=== PATIENT | female | born 1990 | race African-American/Black ===

== ENCOUNTER 2018-10-22 00:17 | Emergency (ER) | END 2018-10-22 01:45 | disposition left against medical advice (07) | LOC: ER 00:17 | DX: Z53.21 Procedure and treatment not carried out due to patient leaving prior to being seen by health care provider (principal); R10.2 Pelvic and perineal pain; N89.8 Other specified noninflammatory disorders of vagina ==

== ENCOUNTER 2018-10-29 15:18 | Emergency (ER) | payer OTHER ==
[2018-10-29] MEDS ORDERED: MAG HYDROX/AL HYDROX/SIMETH SUSP 30 ML UDCUP PO ONE (15:39)
[2018-10-29] MEDS ORDERED: ONDANSETRON 4 MG TAB.RAPDIS PO ONE (15:39)
[2018-10-29] MEDS ORDERED: LIDOCAINE 2% VISCOUS SOLN 20 ML UDCUP PO ONE (15:39)
--- NOTE | 2018-10-29 15:41 | ER Document Report ---
ED Medical Screen (RME) - General Chief Complaint: Sore Throat Stated Complaint: SORE THROAT Time Seen by Provider: 10/29/18 15:31 Mode of Arrival: Ambulatory Information source: Patient Notes: Patient presents complaining of sore throat and cough for the past week. Patient reports subjective fevers at home with chills. Patient complains of vomiting each day about 2 or 3 episodes. Patient also complains of abdominal pain for the past 4 days. I have greeted and performed a rapid initial assessment of this patient. A comprehensive ED assessment and evaluation of the patient, analysis of test results and completion of the medical decision making process will be conducted by additional ED providers. TRAVEL OUTSIDE OF THE [place] IN LAST 30 DAYS: No - Related Data Allergies/Adverse Reactions: No Known Allergies Allergy (Unverified 10/29/18 15:19) Physical Exam - Vital signs Vitals: Temp Pulse Resp BP Pulse Ox 98.3 F 83 18 124/81 97 10/29/18 15:24 10/29/18 15:24 10/29/18 15:24 10/29/18 15:24 10/29/18 15:24 - HEENT Mouth/Lips: Normal Mucous membranes: Normal Pharynx: Erythema. No: Peritonsillar abscess, Post nasal drainage, Retropharyngeal abscess, Tonsillar hypertrophy, Potential airway comprom. Course - Vital Signs Vital signs: Temp Pulse Resp BP Pulse Ox 98.3 F 83 18 124/81 97 10/29/18 15:24 10/29/18 15:24 10/29/18 15:24 10/29/18 15:24 10/29/18 15:24
[2018-10-29 16:14] LABS: ABSOLUTE EOSINOPHILS # (AUTO) 0.2 10^3/uL (0.0-0.6); ABSOLUTE LYMPHOCYTES (AUTO) 2.4 10^3/uL (0.5-4.7); ABSOLUTE MONOCYTES (AUTO) 0.7 10^3/uL (0.1-1.4); ABSOLUTE NEUT (AUTO) 3.3 10^3/uL (1.7-8.2); BASOPHILS % (AUTO) 0.5 % (0-2); EOSINOPHILS % (AUTO) 2.7 % (0-6); HEMATOCRIT 37.4 % (36.0-47.0); MEAN CORPUSCULAR HEMOGLOBIN 30.6 pg (27.0-33.4); MEAN CORPUSCULAR HGB CONC 34.9 g/dL (32.0-36.0); MEAN CORPUSCULAR VOLUME 88 fl (80-97); MONOCYTES % (AUTO) 10.6 % (3-13); PLATELET COUNT 197 10^3/uL (150-450); RED BLOOD COUNT 4.27 10^6/uL (3.72-5.28); RED CELL DISTRIBUTION WIDTH 13.6 % (11.5-14.0); SEGMENTED NEUTROPHILS % (AUTO) 50.2 % (42-78); TOTAL CELLS COUNTED % (AUTO) 100 %; WHITE BLOOD COUNT 6.6 10^3/uL (4.0-10.5)
[2018-10-29 16:33] LABS: ALANINE AMINOTRANSFERASE 28 U/L (9-52); ALBUMIN 4.1 g/dL (3.5-5.0); ALKALINE PHOSPHATASE 54 U/L (38-126); ANION GAP 6 (5-19); ASPARTATE AMINO TRANSFERASE 21 U/L (14-36); BILIRUBIN,DIRECT 0.2 mg/dL (0.0-0.4); BILIRUBIN,TOTAL 0.5 mg/dL (0.2-1.3); BLOOD UREA NITROGEN 17 mg/dL (7-20); CALCIUM 10.1 mg/dL (8.4-10.2); CARBON DIOXIDE 26 mmol/L (22-30); CHLORIDE 107 mmol/L (98-107); GLUCOSE 103 mg/dL (75-110); LIPASE 246.7 U/L (23-300); POTASSIUM 4.2 mmol/L (3.6-5.0); SODIUM 139.4 mmol/L (137-145); TOTAL PROTEIN 7.3 g/dL (6.3-8.2)
--- NOTE | 2018-10-29 16:37 | RADIOLOGY REPORT (SQ) ---
EXAM DESCRIPTION: CHEST 2 VIEWS COMPLETED DATE/TIME: 10/29/2018 4:15 pm REASON FOR STUDY: cough COMPARISON: None. TECHNIQUE: Frontal and lateral radiographic views of the chest acquired. NUMBER OF VIEWS: Two view. LIMITATIONS: None. FINDINGS: LUNGS AND PLEURA: No opacities, masses or pneumothorax. No pleural effusion. MEDIASTINUM AND HILAR STRUCTURES: No masses or contour abnormalities. HEART AND VASCULAR STRUCTURES: Heart normal size. No evidence for failure. BONES: No acute findings. HARDWARE: None in the chest. OTHER: No other significant finding. IMPRESSION: NO SIGNIFICANT RADIOGRAPHIC FINDING IN THE CHEST. TECHNICAL DOCUMENTATION: JOB ID: [id number] [employer]- All Rights Reserved Reading location - IP/workstation name: [email or web address]
[2018-10-29] MEDS ORDERED: KETOROLAC TROMETHAMINE INJ/PF 30 MG/1 ML SDV IV ONE (16:58)
[2018-10-29] MEDS ORDERED: DEXAMETHASONE SOD PHOS INJ 10 MG/1 ML VIAL IV ONE (16:58)
--- NOTE | 2018-10-29 19:06 | RADIOLOGY REPORT (SQ) ---
EXAM DESCRIPTION: CT SOFT TISSUE NECK WITH COMPLETED DATE/TIME: 10/29/2018 6:56 pm REASON FOR STUDY: dysphagia, L>R tonsillar hypertrophy COMPARISON: None. TECHNIQUE: Post IV contrasted scanning from skull base through lung apices with review of bone, soft tissue and lung windows. Reconstructed coronal and sagittal MPR images reviewed. All images stored on PACS. All CT scanners at this facility use dose modulation, iterative reconstruction, and/or weight based d osing when appropriate to reduce radiation dose to as low as reasonably achievable (ALARA). [facility]: Dose Right [facility]: CareDose [facility]: Dose Right [facility]: Teradose 4D [facility]: Spodly CONTRAST TYPE AND DOSE: contrast/concentration: Isovue 350.00 mg/ml; Total Contrast Delivered: 75.0 ml; Total Saline Delivered: 55.0 ml RENAL FUNCTION: BUN 17 creatinine 0.78 RADIATION DOSE: CT Rad equipment meets quality standard of care and radiation dose reduction techniq ues were employed. CTDIvol: 16.5 mGy. DLP: 462 mGy-cm. . LIMITATIONS: None. FINDINGS: SKULL BASE: Intact. MAJOR SALIVARY GLANDS: No solid or cystic masses. No inflammatory changes. LYMPHADENOPATHY: No adenopathy. MUCOSAL MASSES OR ASYMMETRY: Story tonsils are prominent. There is no peritonsillar abscess. LARYNX/CORDS: No abnormal findings. VASCULAR STRUCTURES: The major vessels are patent. LUNG APICES: Clear. BONES: Intact. THYROID: Normal size. No masses. PARANASAL SINUSES: There is opacification in the right maxillary sinus. There is an antral window on the right. There is a mucous retention cyst in the left maxillary sinus. OTHER: No other significant finding. IMPRESSION: Prominent tonsils with no evidence of peritonsillar abscess. Maxillary sinus disease. TECHNICAL DOCUMENTATION: JOB ID: [id number] Quality ID # [id number]: Final reports with documentation of one or more dose reduction techniques (e.g., Au tomated exposure control, adjustment of the mA and/or kV according to patient size, use of iterative reconstruction technique) 2010 [employer] All Rights Reserved Reading location - IP/workstation name: [email or web address]
--- NOTE | 2018-10-29 19:16 | ER Document Report ---
Entered by BASIA ORTIZ SCRIBE 10/29/18 [id number] Acting as scribe for:RO LOPEZ DO ED ENT - General Chief Complaint: Abdominal Pain Stated Complaint: SORE THROAT Time Seen by Provider: 10/29/18 15:31 Primary Care Provider: GAYLE MCGRATH [Primary Care Provider] - Follow up as needed Mode of Arrival: Ambulatory Information source: Patient Notes: 28-year-old female who presents to the emergency department today with complaints of throat pain for the last week. Patient states her pain has increased over the last few days. Patient has taken [id number] cold and flu as well as used hot tea with lemon and honey with minimal relief. Patient has also had vomiting and cough over the last few days. Currently states she feels like she cannot swallow all of her food and feels like it is getting stuck. TRAVEL OUTSIDE OF THE [place] IN LAST 30 DAYS: No - Related Data Allergies/Adverse Reactions: No Known Allergies Allergy (Unverified 10/29/18 15:19) Past Medical History - General Information source: Patient - Social History Smoking Status: Never Smoker Cigarette use (# per day): No Frequency of alcohol use: None Drug Abuse: None Lives with: Family Family History: Reviewed & Not Pertinent Review of Systems - Review of Systems Constitutional: No symptoms reported EENT: See HPI, Throat pain Cardiovascular: No symptoms reported Respiratory: See HPI, Cough Gastrointestinal: See HPI, Vomiting Genitourinary: No symptoms reported Female Genitourinary: No symptoms reported Musculoskeletal: No symptoms reported Skin: No symptoms reported Hematologic/Lymphatic: No symptoms reported Neurological/Psychological: No symptoms reported -: Yes All other systems reviewed and negative Physical Exam - Vital signs Vitals: Temp Pulse Resp BP Pulse Ox 98.3 F 83 18 124/81 97 10/29/18 15:24 10/29/18 15:24 10/29/18 15:24 10/29/18 15:24 10/29/18 15:24 - Notes Notes: PHYSICAL EXAM GENERAL: Alert, interacts well. No acute distress. HEAD: Normocephalic, atraumatic. EYES: Pupils equal, round, and reactive to light. Extraocular movements intact. ENT: Oral mucosa moist, tongue midline. Nonsymmetric bilateral tonsillar hypertrophy, left greater than right. Tonsils are injected bilaterally. Cobblestoning of the posterior oropharynx. Voice is hoarse NECK: Full range of motion. Supple. Trachea midline. LUNGS: Clear to auscultation bilaterally, no wheezes, rales, or rhonchi. No respiratory distress. HEART: Regular rate and rhythm. No murmurs, gallops, or rubs. ABDOMEN: Soft, non-tender. Non-distended. Bowel sounds present in all 4 quadrants. No guarding, rigidity, or rebound. EXTREMITIES: Moves all 4 extremities spontaneously. No edema, radial and dorsalis pedis pulses 2/4 bilaterally. No cyanosis. NEUROLOGICAL: Alert and oriented x3. Normal speech. PSYCH: Normal affect, normal mood. SKIN: Warm, dry, normal turgor. No rashes or lesions noted. Course - Re-evaluation Re-evalutation: 10/29/18 19:13 CT scan of the neck with contrast shows prominent tissues with no evidence of peritonsillar abscess. There is maxillary sinus disease. CBC is unremarkable, CMP unremarkable, test negative, Monospot and strep swabs are negative. Chest x-ray shows no acute process. Discussed with patient that this is likely a viral upper respiratory infection that she will be treated sympto matically. Antibiotics are not indicated. Patient will receive Zofran for nausea and vomiting, Tessalon Perles for cough, nasal saline sprays for rhinorrhea, nasal steroids to decrease the drainage, already received a dose of steroids here which will decrease the cobblestoning in her throat which is likely causing the soreness. Discharged home. - Vital Signs Vital signs: Temp Pulse Resp BP Pulse Ox 98.3 F 83 18 124/81 97 10/29/18 15:24 10/29/18 15:24 10/29/18 15:24 10/29/18 15:24 10/29/18 15:24 - Laboratory Result Diagrams: 10/29/18 16:05 10/29/18 16:05 Discharge - Discharge Clinical Impression: Acute viral pharyngitis, Viral upper respiratory tract infection with cough Condition: Stable Disposition: HOME, SELF-CARE Additional Instructions: Today we did not find any sign of bacterial infection. There is no need to take antibiotics. They will not help. I have prescribed Zofran which is a pill that dissolves under your tongue that will help prevent nausea and vomiting. I have prescribed Tessalon Perles which are a cough suppressant pill you may take 1 pill every 8 hours as needed for cough. In between you should use a humidifier and you may use throat lozenges to decrease your cough and ear or throat pain. Please use nasal saline rinses such as a NetiPot or NeilMed Sinus Rinses. You have been prescribed Nasonex 1 squirt per nostril twice a day will help to decrease nasal discharge and your throat pain. Drink plenty of fluids. Please use ibuprofen (Motrin or Advil) 600-800 mg every 8 hours as needed for pain or fever. You may also use acetaminophen (Tylenol) 1000 mg every 4-6 hours as needed for pain or fever. Please be aware that many medications contain acetaminophen, do not exceed a total of 1000 mg of acetaminophen every 6 hours. Prescriptions: Ondansetron [Zofran Odt 4 mg Tablet] 1 - 2 tab PO Q4HP PRN #10 tab.rapdis PRN Reason: Benzonatate [Tessalon Perles 100 mg Capsule] 100 mg PO Q8HP PRN #30 capsule PRN Reason: Mometasone Furoate [Nasonex] 1 spray NS Q12 #1 spray.pump Referrals: [facility] [Primary Care Provider] - Follow up as needed I personally performed the services described in the documentation, reviewed and edited the documentation which was dictated to the scribe in my presence, and it accurately records my words and actions.
[2018-10-29 19:28] VITALS: BP 120/80
== END 2018-10-29 19:29 | disposition home or self-care (01) ==
LOC: ER 15:18
DX: J06.9 Acute upper respiratory infection, unspecified (principal); J02.9 Acute pharyngitis, unspecified; B97.89 Other viral agents as the cause of diseases classified elsewhere; R10.9 Unspecified abdominal pain; R11.10 Vomiting, unspecified; R05 Cough
CPT/HCPCS: 99284; 96374; 96375; 36415; 87070; 87880; 83690; 84703; 85025; 86308; 80053; 71046; 70491; S0119; J3490; J1885; J1100

== ENCOUNTER 2018-11-08 22:08 | Emergency (ER) | payer OTHER ==
[2018-11-09] MEDS ORDERED: ACETAMINOPHEN 325 MG TABLET PO ONE (00:26)
--- NOTE | 2018-11-09 00:27 | ER Document Report ---
ED Medical Screen (RME) - General Chief Complaint: Abdominal Pain Stated Complaint: ABDOMINAL PAIN Time Seen by Provider: 11/09/18 00:22 Primary Care Provider: GAYLE MCGRATH [Primary Care Provider] - Follow up as needed Notes: 28-year-old female with type 2 diabetes presents with chief complaint of bilateral pelvic pain. Last menstrual period over 3 years ago as she has been on Depo-Provera but received her last shot about 4 months ago. Pain is described as a cramping/striking pain that radiates from her bilateral adnexa to her suprapubic area. Patient has spotted last week. Patient is also had hot flashes for the last 2 days and a headache that has been unremitting. Patient is sexually active and not using protection with the same partner. She denies any fever, chills, nausea, vomiting, diarrhea, shortness of breath or chest pain, complains of white vaginal discharge, no urinary symptoms. I have greeted and performed a rapid initial assessment of this patient. A comprehensive ED assessment and evaluation of the patient, analysis of test results and completion of medical decision making process will be conducted by an additional ED providers. TRAVEL OUTSIDE OF THE [place] IN LAST 30 DAYS: No - Related Data Allergies/Adverse Reactions: No Known Allergies Allergy (Unverified 10/29/18 15:19) Physical Exam - Vital signs Vitals: Temp Pulse Resp BP Pulse Ox 98.5 F 78 16 133/83 H 100 11/08/18 23:51 11/08/18 23:51 11/08/18 23:51 11/08/18 23:51 11/08/18 23:51 - Respiratory Respiratory status: No respiratory distress Chest status: Nontender Breath sounds: Normal Chest palpation: Normal Course - Vital Signs Vital signs: Temp Pulse Resp BP Pulse Ox 98.5 F 78 16 133/83 H 100 11/08/18 23:51 11/08/18 23:51 11/08/18 23:51 11/08/18 23:51 11/08/18 23:51 Doctor's Discharge - Discharge Referrals: [facility] [Primary Care [facility]] - Follow up as needed
--- NOTE | 2018-11-09 02:44 | ER Document Report ---
ED General - General Chief Complaint: Abdominal Pain Stated Complaint: ABDOMINAL PAIN Time Seen by Provider: 11/09/18 00:22 Primary Care Provider: GAYLE MCGRATH [Primary Care Provider] - Follow up in 3-5 days Notes: Patient is a 28-year-old female that presents to the emergency department for chief complaint of abdominal pain. Patient states she is been having pelvic pain has been on and off for the past 2 days, with associated nausea. She describes the pain as a sharp pain, and vaginal region, and extends up towards her stomach. She currently rates the pain as a 2 out of 10, is not as severe as it has been in the past. Denies having any fevers, chills, night sweats, vomiting, diarrhea, hematuria, but does admit to having some dysuria. She is not concerned about any STD, she states she may be but she is not sure she usually has a Depo-Provera shot today at the last injection about 4 months ago. Past Medical History: Diabetes mellitus Past Surgical History: Appendectomy Social History: Denies tobacco, alcohol or drug use. Family History: Reviewed and noncontributory for presenting illness Allergies: Reviewed, see documented allergy list. REVIEW OF SYSTEMS: Other than noted above, the 12 point review of systems was reviewed with the patient and were negative, all pertinent findings are included in the HPI. PHYSICAL EXAMINATION: Vital signs reviewed, nursing noted reviewed. GENERAL: Well-appearing, well-nourished and in no acute distress. HEAD: Atraumatic, normocephalic. EYES: Eyes appear normal, extraocular movements intact, sclera anicteric, conjunctiva are normal. ENT: nares patent, oropharynx clear without exudates. Moist mucous membranes. NECK: Normal range of motion, supple without lymphadenopathy LUNGS: Breath sounds clear to auscultation bilaterally and equal. No wheezes rales or rhonchi. HEART: Regular rate and rhythm without murmurs ABDOMEN: Soft, nontender, normoactive bowel sounds. No rebound, guarding, or rigidity. No masses appreciated. Pelvic Exam: With a taxi driver supervisor present the exam was explained to the patient and patient agreed to proceed with exam. On exam, no external lesions or abnormalities noted. Internal speculum exam demonstrated normal appearing cervix without purulent discharge. Swabs obtained. Bimanual exam was negative for significant adnexal tenderness, or palpable masses. EXTREMITIES: Nontender, good range of motion, no pitting or edema. NEUROLOGICAL: No focal neurological deficits. Moves all extremities spontaneously Motor and sensory grossly intact on exam. PSYCH: Normal mood, normal affect. SKIN: Warm, Dry, normal turgor, no rashes or lesions noted on exposed skin TRAVEL OUTSIDE OF THE [place] IN LAST 30 DAYS: No - Related Data Allergies/Adverse Reactions: No Known Allergies Allergy (Unverified 10/29/18 15:19) Past Medical History - Social History Smoking Status: Never Smoker Family History: Reviewed & Not Pertinent Physical Exam - Vital signs Vitals: Temp Pulse Resp BP Pulse Ox 98.5 F 78 16 133/83 H 100 11/08/18 23:51 11/08/18 23:51 11/08/18 23:51 11/08/18 23:51 11/08/18 23:51 Course - Re-evaluation Re-evalutation: Patient seen and examined vital signs reviewed. Laboratory data and/or imaging were ordered as appropriate for the patient's presenting symptoms and complaint, with consideration of any critical or life threatening conditions that may be associated with their obtained history and exam as noted above. Patient was treated with Pyridium, and Keflex after UA was reviewed and demonstrated signs concerning for urinary tract infection, will also send this for culture Results were reviewed when available and demonstrated UA convincing for UTI, hCG negative, sized for chlamydia, gonorrhea, and wet mount were obtained, wet mount demonstrated bacteria without white cells The patient was re-evaluated and was stable Evaluation was most consistent with UTI, will discharge home with Keflex, and Pyridium advised follow-up with GIN CLERK. Results were discussed with the patient at this point, after careful consideration I feel that that patient can be discharged from the emergency department, the patient was educated treatments and reasons to return to the emergency department based on their presumed diagnosis as noted above, they were advised to followup with a primary care physician in 2-3 days. Patient was agreeable to plan of care. *Note is created using voice recognition software and may contain spelling, syntax or grammatical errors. Laboratory 11/09/18 11/09/18 11/09/18 00:25 03:12 03:12 Urine Color YELLOW Urine Appearance CLOUDY Urine pH 6.0 Ur Specific Mathews 1.018 Urine Protein NEGATIVE Urine Glucose (UA) NEGATIVE Urine Ketones NEGATIVE Urine Blood NEGATIVE Urine Nitrite NEGATIVE Urine Bilirubin NEGATIVE Urine Urobilinogen 2.0 H Ur Leukocyte Esterase LARGE H Urine WBC (Auto) 52 Urine RBC (Auto) 4 Urine Bacteria (Auto) TRACE Squamous Epi Cells Auto 7 Urine Mucus (Auto) OCC Urine Ascorbic Acid NEGATIVE Urine HCG, Qual NEGATIVE Epi Cells (Wet Prep) 3+ EPITHELIALS SEEN Bacteria (Wet Prep) 3+ BACTERIA SEEN Trichomonas (Wet Prep) NO TRICHOMONAS SEEN Vaginal WBC NO WBCS SEEN Vaginal RBC FEW RBCS SEEN Vaginal Yeast NO YEAST SEEN Chlamydia DNA (PCR) NOT DETECTED N.gonorrhoeae DNA (PCR) NOT DETECTED - Vital Signs Vital signs: Temp Pulse Resp BP Pulse Ox 98.4 F 75 18 130/78 H 99 11/09/18 03:48 11/09/18 03:48 11/09/18 03:48 11/09/18 03:48 11/09/18 03:48 - Laboratory Laboratory results interpreted by me: 11/09/18 00:25 Urine Urobilinogen 2.0 H Ur Leukocyte Esterase LARGE H Discharge - Discharge Clinical Impression: UTI (urinary tract infection) Qualifiers: Urinary tract infection type: site unspecified Hematuria presence: without hematuria Qualified Code(s): N39.0 - Urinary tract infection, site not specified Condition: Stable Disposition: HOME, SELF-CARE Instructions: Urinary Tract Infection ([facility]) Additional Instructions: Please take the complete course of antibiotics as prescribed, and follow-up with a primary care physician or [facility] CL[facility]. Please take the Pyridium, this will help with pain, associated with your infection, this medication can turn your urine orange, so do not be alarmed if this occurs. Prescriptions: RX: Cephalexin Monohydrate [Keflex 500 mg Capsule] 500 mg PO BID 3 Days #6 capsule Phenazopyridine HCl [Pyridium 200 mg Tablet] 200 mg PO TID #15 tablet Referrals: [facility] [Primary Care [facility]] - Follow up in 3-5 days
[2018-11-09 03:11] LABS: APPEARANCE,URINE CLOUDY; BILIRUBIN,URINE NEGATIVE (NEGATIVE); COLOR,URINE YELLOW; GLUCOSE, URINE NEGATIVE (NEGATIVE); KETONES,URINE NEGATIVE (NEGATIVE); LEUKOCYTE ESTERASE,URINE LARGE (NEGATIVE); NITRITE,URINE NEGATIVE (NEGATIVE); PROTEIN,URINE NEGATIVE (NEGATIVE); URINE SPECIFIC GRAVITY 1.018
[2018-11-09] MEDS ORDERED: CEPHALEXIN 500 MG CAPSULE PO ONE (03:23)
[2018-11-09] MEDS ORDERED: PHENAZOPYRIDINE HCL 200 MG TABLET PO ONE (03:23)
[2018-11-09 03:25] LABS: BACTERIA (WET MOUNT) 3+ BACTERIA SEEN; EPITHELIALS (WET MOUNT) 3+ EPITHELIALS SEEN; RBCS (WET MOUNT) FEW RBCS SEEN; T.VAGINALIS (WET MOUNT) NO TRICHOMONAS SEEN; WBCS (WET MOUNT) NO WBCS SEEN; YEAST (WET MOUNT) NO YEAST SEEN
[2018-11-09 04:06] VITALS: BP 130/78
[2018-11-09 04:50] LABS: CHLAM PCR NOT DETECTED (NOT DETECT); GON PCR NOT DETECTED (NOT DETECT)
== END 2018-11-09 03:55 | disposition home or self-care (01) ==
LOC: ER 22:08
DX: N39.0 Urinary tract infection, site not specified (principal); R10.9 Unspecified abdominal pain; R10.2 Pelvic and perineal pain; R11.0 Nausea
CPT/HCPCS: 99284; 87086; 87210; 81025; 81001; 87491; 87591; J3490

== ENCOUNTER 2020-01-07 03:19 | Emergency (ER) | payer BC, OTHER ==
[2020-01-07] MEDS ORDERED: KETOROLAC TROMETHAMINE 60 MG/2 ML SDV IM ONE (03:40)
--- NOTE | 2020-01-07 03:43 | ER Document Report ---
HPI - HPI Time Seen by Provider: 01/07/20 03:33 Pain Level: 4 Context: Patient is a 30-year-old female that comes emergency department for chief complaint of neck pain and stiffness. She states that she started having soreness of her neck yesterday, she woke up this morning much worse, she states she has developed pain throughout the day and now she has trouble moving her head to the left at all. She has very limited range of motion side to side and she states it feels like she has a "spasm" in her neck. She cannot recall a specific injury, she works at a desk. She denies numbness, head injury, neck injury, fever, nausea, vomiting, headache, chest pain, shortness of breath, any other locations of back pain, incontinence. She takes no daily prescribed indications. She denies past medical history of wisdom tooth removal and . She denies recreational drugs. - REPRODUCTIVE LMP: 1 wk ago Reproductive: DENIES: : Past Medical History - General Information source: Patient - Social History Smoking Status: Current Some Day Smoker Frequency of alcohol use: None Drug Abuse: None Lives with: Family Family History: Reviewed & Not Pertinent Patient has homicidal ideation: No - Medical History Medical History: Negative Renal/ Medical History: Denies: Hx Peritoneal Dialysis Surgical Hx: Negative - Immunizations Immunizations up to date: Yes Hx Diphtheria, Pertussis, Tetanus Vaccination: Yes Vertical Provider Document - CONSTITUTIONAL General Appearance: WD/WN. negative: No Apparent Distress - Patient appears unc omfortable, she is holding her head to try to support her neck - INFECTION CONTROL TRAVEL OUTSIDE OF THE [place] IN LAST 30 DAYS: No - HEENT HEENT: Atraumatic, Normal ENT Exam, Normocephalic - NECK Neck: Normal Inspection - No nuchal rigidity - RESPIRATORY Respiratory: Breath Sounds Normal, No Respiratory Distress - CARDIOVASCULAR Cardiovascular: Regular Rate, Regular Rhythm. negative: Tachycardia - GI/ABDOMEN Gastrointestinal: Abdomen Soft, Abdomen Non-Tender. negative: Abdomen Tender - BACK Back: negative: Normal Inspection - Patient with tender spasmed muscles along the paracervical area bilaterally, worse on the right, right-sided trapezius muscle tenderness and spasm. Very limited range of motion laterally with the neck especially to the left. No midline tenderness, no saddle anesthesia, no signs of trauma. Normal upper and lower extremity range of motion, normal strength, normal distal neurovascular exam. - MUSCULOSKELETAL/EXTREMETIES Musculoskeletal/Extremeties: MAEW, FROM, Non-Tender - NEURO Level of Consciousness: Awake, Alert, Appropriate Motor/Sensory: No Motor Deficit, No Sensory Deficit - DERM Integumentary: Warm, Dry, No Rash Course - Re-evaluation Re-evalutation: Patient has very obvious muscle spasm and almost torticollis with very limited lateral range of motion the neck. Very tender along the paracervical muscles and trapezius muscle on the right side especially. Patient is holding her head with her hands to try to help with her spasm. However she has not had any trauma, she has no nuchal rigidity, no fever, no neurological deficits, and she has no midline tenderness of the spine. Discussed options, patient will be treated for suspected muscle spasms. She was started with medications here including Toradol and diazepam, she will be provided with this at home along with work release. Discussed precautions, expectations, follow-up, and return precautions with patient in detail. Patient states understanding and agreement with plan. - Vital Signs Vital signs: Temp Pulse Resp BP Pulse Ox 99 F 01/07/20 03:19 Discharge - Discharge Clinical Impression: Neck pain, Muscle spasm Condition: Stable Disposition: HOME, SELF-CARE Additional Instructions: Your evaluation is consistent with significant muscle spasms in your paracervical and trapezius muscles especially on the right. You have been prescribed diazepam as a muscle relaxer, use with the precautions listed. Also take the anti-inflammatory as prescribed. Apply heat to your neck, perform gentle stretches and massage. Symptoms should gradually resolve. Follow-up with primary care for additional management. Return if you worsen including severe worsening pain, developing numbness, severe headache, vomiting, fever, or any other concerning or worsening symptoms. Prescriptions: Naproxen 500 mg PO BID PRN #20 tablet PRN Reason: Diazepam [Valium 5 mg Tablet] 1 - 2 tab PO TID PRN #12 tablet PRN Reason: Forms: Return to Work Referrals: [facility] [NO LOCAL MD] - Follow up in 1 week
[2020-01-07] MEDS ORDERED: HYDROCODONE/ACETAMINOPHEN 5-325 MG (6 TAB/ER DISP) PO PRN (04:14)
[2020-01-07] MEDS ORDERED: DIAZEPAM 5 MG TABLET PO ONE (04:28)
[2020-01-07 04:39] VITALS: BP 150/88
== END 2020-01-07 04:40 | disposition home or self-care (01) ==
LOC: ER 03:19
DX: M54.2 Cervicalgia (principal); M62.838 Other muscle spasm; F17.200 Nicotine dependence, unspecified, uncomplicated
CPT/HCPCS: 99283

== ENCOUNTER 2020-01-09 16:32 | Emergency (ER) | payer BC ==
[2020-01-09] MEDS ORDERED: DIAZEPAM INJ 10 MG/2 ML DISP.SYRIN IV ONE (17:14)
[2020-01-09] MEDS ORDERED: KETOROLAC TROMETHAMINE INJ/PF 30 MG/1 ML SDV IV ONE (17:14)
[2020-01-09] MEDS ORDERED: MORPHINE SULFATE 10 MG/ML INJ IV ONE (17:14)
--- NOTE | 2020-01-09 17:16 | ER Document Report ---
ED Medical Screen (RME) - General Chief Complaint: Neck Problem Stated Complaint: NECK PAIN Time Seen by Provider: 01/09/20 17:07 Mode of Arrival: Ambulatory Information source: Patient Notes: Patient is a 22-year-old female presents emergency department with chief complaint of head and neck pain. Patient was seen here 2 days ago and diagnosed with torticollis. Patient was sent home with a prescription for naproxen and Valium. Patient reports she has been taking the medications, she states the Valium helps slightly but she continues to have significant pain. She denies any fever or chills. She does not have any nuchal rigidity. She does report pain is worse when she moves her head towards the right. She is very tearful in triage and in obvious distress. I have greeted and performed a rapid initial assessment of this patient. A comprehensive ED assessment and evaluation of the patient, analysis of test results and completion of the medical decision making process will be conducted by additional ED providers. I have specifically instructed the patient or family members with the patient to immediately return to any nursing staff should anything change in the patient's condition or with their chief complaint. TRAVEL OUTSIDE OF THE [place] IN LAST 30 DAYS: No - Related Data Allergies/Adverse Reactions: No Known Allergies Allergy (Verified 01/09/20 17:04) Past Medical History - Social History Chew tobacco use (# tins/day): No Frequency of alcohol use: Social Drug Abuse: None Renal/ Medical History: Denies: Hx Peritoneal Dialysis - Immunizations Immunizations up to date: Yes Hx Diphtheria, Pertussis, Tetanus Vaccination: Yes Physical Exam - Vital signs Vitals: Temp Pulse Resp BP Pulse Ox 98.4 F 107 H 20 145/83 H 96 01/09/20 16:36 01/09/20 16:36 01/09/20 16:36 01/09/20 16:36 01/09/20 16:36 Course - Vital Signs Vital signs: Temp Pulse Resp BP Pulse Ox 98.4 F 107 H 20 145/83 H 96 01/09/20 16:36 01/09/20 16:36 01/09/20 16:36 01/09/20 16:36 01/09/20 16:36
[2020-01-09] MEDS ORDERED: KETOROLAC TROMETHAMINE INJ/PF 30 MG/1 ML SDV IM ONE (18:52)
[2020-01-09] MEDS ORDERED: DIAZEPAM INJ 10 MG/2 ML DISP.SYRIN IM ONE (18:52)
[2020-01-09] MEDS ORDERED: MORPHINE SULFATE 10 MG/ML INJ IM ONE (18:53)
--- NOTE | 2020-01-09 19:16 | RADIOLOGY REPORT (SQ) ---
EXAM DESCRIPTION: CT HEAD WITHOUT IMAGES COMPLETED DATE/TIME: 01/09/2020 6:51 pm REASON FOR STUDY: head/neck pain persistent COMPARISON: None. TECHNIQUE: Axial images acquired through the brain without intravenous contrast. Images reviewed wit h bone, brain and subdural windows. Images stored on PACS. All CT scanners at this facility use dose modulation, iterative reconstruction, and/or weight based d osing when appropriate to reduce radiation dose to as low as reasonably achievable (ALARA). [facility]: Dose Right [facility]: CareDose [facility]: Dose Right [facility]: Teradose 4D [facility]: [employer] RADIATION DOSE: CT Rad equipment meets quality standard of care and radiation dose reduction techniq ues were employed. CTDIvol: 53.2 mGy. DLP: 911 mGy-cm.. LIMITATIONS: None. FINDINGS: VENTRICLES: Normal size and contour. CEREBRUM: No masses. No hemorrhage. No midline shift. Age appropriate white matter. No evidence for a cute infarction. CEREBELLUM: No masses. No hemorrhage. No alteration of density. No evidence for acute infarction. EXTRA-AXIAL SPACES: No fluid collections. ORBITS AND GLOBE: No intra- or extraconal masses. Normal contour of globe without masses. CALVARIUM: No fracture. PARANASAL SINUSES: Right maxillary sinus fluid - mucosal thickening. SOFT TISSUES: No mass or hematoma. OTHER: No other significant finding. IMPRESSION: NO ACUTE INTRACRANIAL FINDINGS.Right maxillary sinus fluid - mucosal thickening. EVIDENCE OF ACUTE STROKE: NO. TECHNICAL DOCUMENTATION: JOB ID: [id number] [place]-72 Quality ID # [id number]: Final reports with documentation of one or more dose reduction techniques (e.g., Au tomated exposure control, adjustment of the mA and/or kV according to patient size, use of iterative reconstruction technique) 2010 [employer]- All Rights Reserved Reading location - IP/workstation name: [email or web address]
--- NOTE | 2020-01-09 19:18 | RADIOLOGY REPORT (SQ) ---
EXAM DESCRIPTION: CT CERVICAL SPINE WITHOUT IMAGES COMPLETED DATE/TIME: 01/09/2020 6:51 pm REASON FOR STUDY: head/neck pain persistent COMPARISON: 10/29/2018 TECHNIQUE: Axial images acquired through the cervical spine without intravenous contrast. Images re viewed with lung, soft tissue and bone windows. Reconstructed coronal and sagittal MPR images review ed. Images stored on PACS. All CT scanners at this facility use dose modulation, iterative reconstruction, and/or weight based d osing when appropriate to reduce radiation dose to as low as reasonably achievable (ALARA). [facility]: Dose Right [facility]: CareDose [facility]: Dose Right [facility]: Teradose 4D [facility]: [employer] RADIATION DOSE: CT Rad equipment meets quality standard of care and radiation dose reduction techniq ues were employed. CTDIvol: 25.5 mGy. DLP: 534 mGy-cm. mGy. LIMITATIONS: None. FINDINGS: ALIGNMENT: Anatomic. MINERALIZATION: Normal. VERTEBRAL BODIES: No fractures or dislocation. DISCS: No significant disc disease. FACETS, LATERAL MASSES, POSTERIOR ELEMENTS: No fractures. No dislocation. No acute findings. HARDWARE: None in the spine. VISUALIZED RIBS: No fractures. LUNG APICES AND SOFT TISSUES: No significant or acute findings. OTHER: No other significant finding. IMPRESSION: NO ACUTE FINDINGS IN THE CERVICAL SPINE. TECHNICAL DOCUMENTATION: JOB ID: [id number] [place]-72 Quality ID # [id number]: Final reports with documentation of one or more dose reduction techniques (e.g., Au tomated exposure control, adjustment of the mA and/or kV according to patient size, use of iterative reconstruction technique) 2010 [employer]- All Rights Reserved Reading location - IP/workstation name: [email or web address]
--- NOTE | 2020-01-09 20:47 | ER Document Report ---
ED General - General Chief Complaint: Neck Problem Stated Complaint: NECK PAIN Time Seen by Provider: 01/09/20 17:07 Mode of Arrival: Ambulatory Information source: Patient Notes: Justin 06 January notes Patient is a 30-year-old female that comes emergency department for chief complaint of neck pain and stiffness. She states that she started having soreness of her neck yesterday, she woke up this morning much worse, she states she has developed pain throughout the day and now she has trouble moving her head to the left at all. She has very limited range of motion side to side and she states it feels like she has a "spasm" in her neck. She cannot recall a specific injury, she works at a desk. She denies numbness, head injury, neck injury, fever, nausea, vomiting, headache, chest pain, shortness of breath, any other locations of back pain, incontinence. She takes no daily prescribed indications. She denies past medical history of wisdom tooth removal and . She denies recreational drugs. triage notes 01/09/20 17:06 - ED Nursing Note [facility] Num: [id number] : 1990 Patient Age: 30 patient reports she has had neck pain x 3 days after waking up that radiates to the head. states she was seen on Friday for same and was told she had a stiff neck and was having muscle spasms. reports has been taking medications as prescribed without relief. states has an increase in pain with movement, and has limited ROM of neck. patient tearful at this time. Kareen LEAL notes Patient is a 22-year-old female presents emergency department with chief complaint of head and neck pain. Patient was seen here 2 days ago and diagnosed with torticollis. Patient was sent home with a prescription for naproxen and Valium. Patient reports she has been taking the medications, she states the Valium helps slightly but she continues to have significant pain. She denies any fever or chills. She does not have any nuchal rigidity. She does report pain is worse when she moves her head towards the right. She is very tearful in triage and in obvious distress. my notes CT of neck as ordered by Rochelle was negative and CT of head revealed right maxillary sinus dz. my note 30-year-old black female arrives with chief complaint of 3-day history of dorsal neck pain on the right around the occipital area as well. Patient denies any trauma fever chills cough or cold or abuse. Patient works at the [employer]. TRAVEL OUTSIDE OF THE [place] IN LAST 30 DAYS: No - HPI Onset: Just prior to arrival Onset/Duration: Sudden, Persistent, Worse Quality of pain: Achy, Pressure Severity: Moderate Pain Level: 3 Associated symptoms: None Exacerbated by: Movement Relieved by: Remaining still Similar symptoms previously: No Recently seen / treated by doctor: Yes - Related Data Allergies/Adverse Reactions: No Known Allergies Allergy (Verified 01/09/20 17:04) Past Medical History - General Information source: Patient - Social History Smoking Status: Current Every Day Smoker Cigarette use (# per day): Yes Chew tobacco use (# tins/day): No Smoking Education Provided: Yes Frequency of alcohol use: Social Drug Abuse: None Lives with: Family Family History: Reviewed & Not Pertinent Patient has suicidal ideation: No Patient has homicidal ideation: No Renal/ Medical History: Denies: Hx Peritoneal Dialysis - Immunizations Immunizations up to date: Yes Hx Diphtheria, Pertussis, Tetanus Vaccination: Yes Review of Systems - Review of Systems Constitutional: See HPI, Weakness EENT: No symptoms reported, Other - denies sinus pain but CT pos r max sinus dz Cardiovascular: No symptoms reported Respiratory: No symptoms reported Gastrointestinal: No symptoms reported Genitourinary: No symptoms reported Female Genitourinary: No symptoms reported Musculoskeletal: No symptoms reported Skin: No symptoms reported Hematologic/Lymphatic: No symptoms reported Neurological/Psychological: No symptoms reported Physical Exam - Vital signs Vitals: Temp Pulse Resp BP Pulse Ox 98.4 F 107 H 20 145/83 H 96 01/09/20 16:36 01/09/20 16:36 01/09/20 16:36 01/09/20 16:36 01/09/20 16:36 - General General appearance: Alert - HEENT Head: Normocephalic, Atraumatic Eyes: Normal Pupils: PERRL - Respiratory Respiratory status: No respiratory distress Chest status: Nontender Breath sounds: Normal Chest palpation: Normal - Cardiovascular Rhythm: Regular Heart sounds: Normal auscultation Murmur: No - Abdominal Inspection: Normal Distension: No distension Bowel sounds: Normal Tenderness: Nontender Organomegaly: No organomegaly - Rectal Hemorrhoids: Other - deferred - Genitourinary Speculum exam: Other - deferred - Back Back: Normal - Extremities General upper extremity: Normal inspection, Nontender, Normal color, Normal ROM, Normal temperature General lower extremity: Normal inspection, Nontender, Normal color, Normal ROM, Normal temperature, Normal weight bearing. No: Lelia's sign - Neurological Neuro grossly intact: Yes Cognition: Normal Orientation: AAOx4 [place] Coma Scale Eye Opening: Spontaneous [place] Coma Scale Verbal: Oriented [place] Coma Scale Motor: Obeys Commands [place] Coma Scale Total: 15 Speech: Normal Motor strength normal: LUE, RUE, LLE, RLE Sensory: Normal - Psychological Associated symptoms: Normal affect - Skin Skin Temperature: Warm Skin Moisture: Dry Course - Vital Signs Vital signs: Temp Pulse Resp BP Pulse Ox 98.4 F 107 H 20 145/83 H 96 01/09/20 16:36 01/09/20 16:36 01/09/20 16:36 01/09/20 16:36 01/09/20 16:36 - Diagnostic Test Radiology reviewed: Reports reviewed Critical Care Note - Critical Care Note Total time excluding time spent on procedures (mins): 90 Comments: I advised patient of CT findings but she denies any maxillary sinus problems Discharge - Discharge Clinical Impression: Torticollis, acute, Neck muscle spasm, sinusitis asymptomatic Condition: Good Disposition: HOME, SELF-CARE Additional Instructions: Follow-up with orthopedics Dr. Arun Rose if symptoms persist and take medicines as directed. You may also follow with your personal doctor as needed. Return to ER for emergencies take time off work as directed and avoid using pillows for the next 2 to 3 days. May use a rolled bath towel small sized underneath dorsal neck upon sleeping. Make this no larger than 3 inches in diameter. Prescriptions: Etodolac [Lodine] 400 mg PO BID PRN 7 Days #14 tablet PRN Reason: Chlorzoxazone [Parafon Forte Dsc 500 Mg Tablet] 500 mg PO TID PRN #15 tablet PRN Reason: Pain Scale Of 1 Forms: Return to Work
[2020-01-09] MEDS ORDERED: METHOCARBAMOL INJ/PF 1000 MG/10 ML SDV IV ONE (21:22)
[2020-01-09] MEDS ORDERED: FENTANYL CITRATE INJ/PF 100 MCG/2 ML AMPUL IV ONE (21:22)
[2020-01-09] MEDS ORDERED: CEFTRIAXONE INJ 1000 MG VIAL IV ONE (21:23)
[2020-01-09] MEDS ORDERED: DEXAMETHASONE SOD PHOS INJ 10 MG/1 ML VIAL IV ONE (21:23)
[2020-01-09 21:45] VITALS: BP 140/92
== END 2020-01-09 22:31 | disposition home or self-care (01) ==
LOC: ER 16:32
DX: M43.6 Torticollis (principal); M62.838 Other muscle spasm; J32.9 Chronic sinusitis, unspecified; M54.2 Cervicalgia; R51 Headache; F17.210 Nicotine dependence, cigarettes, uncomplicated
CPT/HCPCS: 99285; 96372; 96374; 96375; 70450; 72125; J3360; J3010; J2800; J1885; J2270; J0696; J1100; 96365; 96367